=== PATIENT | female | born 1975 | race Two or more races ===

== ENCOUNTER → 2019-12-30 | Outpatient (CLI) | payer OTHER ==
[~2019-12-30] MED LIST: Zoloft PO
[2019-12-30 10:14] LABS: HCG UR SG 1.006 (1.003-1.030); MICROSCOPIC NOT IND
[2019-12-30 10:30] LABS: BASOPHILS # (AUTO) 0.04 x10^3/uL (0-0.1); BASOPHILS % (AUTO) 1 % (0-1); EOSINOPHILS # (AUTO) 0.03 x10^3/uL (0-0.4); EOSINOPHILS % (AUTO) 1 % (1-7); LYMPHOCYTES # (AUTO) 1.47 x10^3/uL (1-3.4); LYMPHOCYTES % (AUTO) 28 % (22-44); MD NO; MEAN CORPUSCULAR HEMOGLOBIN 29.9 pg (27.0-34.8); MEAN CORPUSCULAR HGB CONC 32.4 g/dL (32.4-35.8); MEAN CORPUSCULAR VOLUME 92.2 fL (80-100); MEAN PLATELET VOLUME 9.9 fL (7.4-10.4); MONOCYTES # (AUTO) 0.32 x10^3/uL (0.2-0.8); MONOCYTES % (AUTO) 6 % (2-9); NEUTROPHILS # (AUTO) 3.49 x10^3/uL (1.8-6.8); NEUTROPHILS % (AUTO) 65 % (42-75); PLATELET COUNT 162 x10^3/uL (130-400); RED CELL DISTRIBUTION WIDTH 15.1 % (9.6-15.2)
[2019-12-30 11:04] LABS: ALANINE AMINOTRANSFERASE 26 U/L (12-78); ALBUMIN 3.8 g/dL (3.4-5.0); ANION GAP 8 mmol/L (5-15); CALCIUM 8.8 mg/dL (8.5-10.1); CHLORIDE 104 mmol/L (98-107); CREATININE 0.84 mg/dL (0.55-1.02)
[2019-12-30 11:08] LABS: ALKALINE PHOSPHATASE 59 U/L (45-117); BILIRUBIN,TOTAL 0.4 mg/dL (0.2-1.0); TOTAL PROTEIN 7.6 g/dL (6.4-8.2)
== END | disposition home or self-care (01) ==
LOC: STAR 09:10
PROVIDERS: ATTEND Obstetrics & Gynecology
DX: Z01.818 Encounter for other preprocedural examination (principal); D21.9 Benign neoplasm of connective and other soft tissue, unspecified; R10.2 Pelvic and perineal pain; N92.0 Excessive and frequent menstruation with regular cycle
CPT/HCPCS: 36415; 80053; 81003; 81025; 84702; 85025

== ENCOUNTER 2020-01-08 05:22 | Observation (INO) | payer OTHER ==
[~2020-01-08] VITALS: Ht 144.8 cm; Wt 53.0 kg
[2020-01-08] MEDS ORDERED: LACTATED RINGERS 1,000 ML IV SCH ×2 (06:10→07:08)
[2020-01-08] MEDS ORDERED: ACETAMINOPHEN 500 MG TABLET PO ONE (06:30)
[2020-01-08] MEDS ORDERED: GABAPENTIN 300 MG CAPSULE PO ONE (06:30)
[2020-01-08] MEDS ORDERED: LIDOCAINE-MPF 1%, 2ML INFIL ONE ×2 (06:30→07:30)
[2020-01-08] MEDS ORDERED: CHLORHEXIDINE 15 ML UDC MM ONE ×2 (06:30→07:30)
[2020-01-08 06:47] LABS: HCG UR SG 1.017 (1.003-1.030)
[2020-01-08] MEDS ORDERED: FENTANYL PF 250 MCG/5ML ONE (06:50)
[2020-01-08] MEDS ORDERED: MIDAZOLAM 1 MG/ML, 2ML ONE (06:50)
[2020-01-08] MEDS ORDERED: PROPOFOL 10 MG/ML, 20ML ONE (06:51)
[2020-01-08] MEDS ORDERED: DEXAMETHASONE 4 MG/ML, 1ML ONE ×2 (06:54)
[2020-01-08] MEDS ORDERED: FLUORESCEIN SODIUM 500 MG/5 ML ONE (07:09)
[2020-01-08] MEDS ORDERED: BUPIVACAINE/PF-EPI 0.25% 1:200K ONE (07:09)
[2020-01-08] MEDS ORDERED: BUPIVACAINE/PF 0.25% ONE (07:09)
[2020-01-08] MEDS ORDERED: PROPOFOL 50 ML ONE (07:13)
[2020-01-08] MEDS ORDERED: ROCURONIUM 10 MG/ML,10ML ONE (07:25)
[2020-01-08] MEDS ORDERED: CEFAZOLIN 1,000 MG ONE ×2 (07:43→11:36)
[2020-01-08] MEDS ORDERED: LABETALOL 5MG/ML, 20ML IV PRN (08:30)
[2020-01-08] MEDS ORDERED: PROMETHAZINE 25 MG/ML, 1ML IVPush PRN (08:30)
[2020-01-08] MEDS ORDERED: ONDANSETRON 2MG/ML, 2ML IVPush PRN (08:30)
[2020-01-08] MEDS ORDERED: hydrALAzine 20 MG/ML, 1ML IV PRN (08:30)
[2020-01-08] MEDS ORDERED: HYDROmorphone 1 MG/ML, 1ML INJ IVPush PRN (08:30)
[2020-01-08] MEDS ORDERED: MEPERIDINE/PF 25MG/0.5ML IVPush PRN (08:30)
[2020-01-08] MEDS ORDERED: OXYcodone 5 MG/5 ML ORAL.SOL UDC PO PRN ×2 (08:30→17:20)
[2020-01-08] MEDS ORDERED: ONDANSETRON 2MG/ML, 2ML ONE ×2 (08:54→11:42)
[2020-01-08] MEDS ORDERED: INDIGO CARMINE 0.8%, 5ML ONE (09:23)
[2020-01-08] MEDS ORDERED: HYDROmorphone 2 MG/ML, 1ML ONE (11:48)
[2020-01-08] MEDS: FENTANYL PF 100 MCG/2ML IV PRN ×2 (12:53→13:08)
[2020-01-08] MEDS ORDERED: FENTANYL PF 100 MCG/2ML ONE (12:57)
[2020-01-08] MEDS ORDERED: HYDROmorphone 1 MG/ML, 1ML INJ ONE (12:57)
[2020-01-08] MEDS ORDERED: OXYcodone 5 MG/5 ML ORAL.SOL UDC ONE (13:16)
[2020-01-08] MEDS ORDERED: ACETAMINOPHEN 325 MG TABLET PO PRN (15:30)
[2020-01-08] MEDS ORDERED: ACETAMINOPHEN 650 MG SUPP PR PRN (15:30)
[2020-01-08] MEDS ORDERED: ONDANSETRON 2MG/ML, 2ML IV PRN (16:00)
[2020-01-08] MEDS: IBUPROFEN 600 MG TABLET PO SCH ×2 (16:32→20:59)
[2020-01-08 20:16] VITALS: BP 114/76
[2020-01-08] MEDS: CEFAZOLIN PMX 1GM/50ML 50 ML IVPB SCH (20:58)
[2020-01-08] MEDS: DOCUSATE 100 MG CAPSULE PO SCH (20:59)
[2020-01-08] MEDS: LACTATED RINGERS 1,000 ML IV SCH (21:00)
[2020-01-09 00:36] VITALS: BP 116/71
[2020-01-09 04:06] VITALS: BP 105/67
[2020-01-09] MEDS: LACTATED RINGERS 1,000 ML IV SCH ×2 (05:00→12:10)
[2020-01-09] MEDS: CEFAZOLIN PMX 1GM/50ML 50 ML IVPB SCH (05:27)
[2020-01-09] MEDS: IBUPROFEN 600 MG TABLET PO SCH ×2 (05:27→11:05)
[2020-01-09 06:23] LABS: CREATININE 0.72 mg/dL (0.55-1.02)
[2020-01-09 07:34] VITALS: BP 117/74
[2020-01-09] MEDS: DOCUSATE 100 MG CAPSULE PO SCH (08:11)
[2020-01-09 13:58] VITALS: BP 110/67
[2020-01-09 15:22] VITALS: BP 110/64
[2020-01-09] MEDS ORDERED: OXYC-302 PO (15:23)
== END 2020-01-09 15:54 | disposition home or self-care (01) ==
LOC: OUT 05:22 → 4NE 14:00 → OUT 16:21 → DCLOUNGE 01-09 15:49
PROVIDERS: ADMIT Obstetrics & Gynecology; ATTEND Obstetrics & Gynecology
DX: Z03.818 Encounter for observation for suspected exposure to other biological agents ruled out (principal); D25.9 Leiomyoma of uterus, unspecified; S37.10XA Unspecified injury of ureter, initial encounter; E78.00 Pure hypercholesterolemia, unspecified; N92.0 Excessive and frequent menstruation with regular cycle; Z79.899 Other long term (current) drug therapy
CPT/HCPCS: 36415; 50947; 52005; 58552; 74018; 81025; 82565; 85014; 85018; 87635; 88307; 96365; 96366; 96375; C1729; C2617; G0378; J0690; J1100; J1170; J2250; J2405; J2704; J3010; J3490; J7120

== ENCOUNTER → 2020-04-26 | Outpatient (CLI) | payer OTHER ==
[~2020-04-26] MED LIST changes: +OXYC-302 PO
== END | disposition home or self-care (01) ==
LOC: CFH 10:16 → EDSTATUS 10:30
PROVIDERS: ATTEND Obstetrics & Gynecology
DX: Z12.31 Encounter for screening mammogram for malignant neoplasm of breast (principal)
CPT/HCPCS: 77063; 77067